=== PATIENT | female | born 1975 | race Caucasian/White ===

== ENCOUNTER 2017-11-20 15:35 | Emergency (ER) | payer OTHER ==
[~2017-11-20] VITALS: Ht 170.2 cm; Wt 79.4 kg
[~2017-11-20 15:35] MED LIST: DIAZ5TAB PO; HYDR-971 PO; ONDA4TAB10 PO; ONDA4TAB7 PO
[2017-11-20 15:55] VITALS: BP 105/77
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
[2017-11-20] MEDS ORDERED: IBUP800T19 PO (17:37)
[2017-11-20] MEDS ORDERED: ONDA4TAB10 PO (17:43)
[2017-11-20] MEDS ORDERED: IBUPROFEN 600 MG TABLET. PO ONE (18:00)
== END 2017-11-20 17:59 | disposition home or self-care (01) ==
LOC: ER 15:35
DX: S09.90XA Unspecified injury of head, initial encounter (principal); S16.1XXA Strain of muscle, fascia and tendon at neck level, initial encounter; S00.11XA Contusion of right eyelid and periocular area, initial encounter; Z88.6 Allergy status to analgesic agent; Z88.5 Allergy status to narcotic agent; Z88.8 Allergy status to other drugs, medicaments and biological substances; V89.2XXA Person injured in unspecified motor-vehicle accident, traffic, initial encounter; Y93.89 Activity, other specified; Y99.8 Other external cause status; Y92.488 Other paved roadways as the place of occurrence of the external cause
CPT/HCPCS: 70450; 72125; 99284-25

== ENCOUNTER 2018-01-02 15:18 | Emergency (ER) | payer OTHER ==
[~2018-01-02 15:18] MED LIST changes: +IBUP800T19 PO
[2018-01-02] MEDS ORDERED: methylPREDNISolone SOD SUCC PF 40 MG/ML VIAL. IM ONE (16:30)
[2018-01-02] MEDS ORDERED: ONDANSETRON ODT 4 MG TAB.RAPDIS PO ONE (16:30)
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
[2018-01-02] MEDS ORDERED: diazePAM 5 MG TABLET ONE (16:43)
[2018-01-02] MEDS ORDERED: diazePAM 5 MG TABLET PO ONE (16:45)
[2018-01-02 17:00] VITALS: BP 126/70
== END 2018-01-02 17:18 | disposition home or self-care (01) ==
LOC: ER 15:18
DX: M79.604 Pain in right leg (principal); M79.605 Pain in left leg; M54.5 Low back pain; Z90.49 Acquired absence of other specified parts of digestive tract; Z88.5 Allergy status to narcotic agent; Z88.8 Allergy status to other drugs, medicaments and biological substances; Z88.6 Allergy status to analgesic agent
CPT/HCPCS: 96372; 99283; J2920; Q0162

== ENCOUNTER 2018-03-17 22:10 | Inpatient (IN) | payer OTHER ==
[~2018-03-17] VITALS: Ht 170.2 cm; Wt 86.8 kg
--- NOTE | 2018-03-17 22:46 | ED.ADGEN ---
Past History Past Medical History: Diverticulitis, Ovarian Cyst, Other Past Surgical History: Cholecystectomy Alcohol Use: Occasionally Drug Use: None Adult General Chief Complaint Chief Complaint " .. I just having terrible pain.. it started about 11:30.. and more severe all day.. I did eat at 4:30 pm.. but that did not help... I ve had ovarian cysts before ... but nothing like this.. " HPI HPI Patient is a 42 year old female who presents with above hx and complaints nausea vomiting and abdomen pain. No history of intake of bad food. No history of travel or specific ill contacts. No history of trauma. Patient denies any history of immunosuppression. Patient has had previous cholecystectomy. Patient reports a normal colonoscopy in the past. Patient does have a history of prior ovarian cyst. Review of Systems Review of Systems Constitutional: Denies fever or chills [] Eyes: Denies change in visual acuity, redness, or eye pain [] HENT: Denies nasal congestion or sore throat [] Respiratory: Denies cough or shortness of breath [] Cardiovascular: No additional information not addressed in HPI [] GI: Complaints of abdominal pain, nausea, vomiting,. Denies bloody stools or diarrhea [] : Denies dysuria or hematuria [] Musculoskeletal: Denies back pain or joint pain [] Integument: Denies rash or skin lesions [] Neurologic: Denies headache, focal weakness or sensory changes [] Endocrine: Denies polyuria or polydipsia [] All other systems were reviewed and found to be within normal limits, except as documented in this note. Family History Family History Noncontributory Current Medications Current Medications Current Medications Medications (Trade) Dose Ordered Sig/Yanique Start Time Stop Time Status Last Admin Dose Admin Ceftriaxone Sodium 1 gm/ Sodium Chloride 50 ml @ 100 mls/hr 1X ONCE 03/18/18 02:15 03/18/18 02:44 UNV Ceftriaxone Sodium (Rocephin) 1 gm 1X ONCE 03/18/18 02:30 03/18/18 02:31 DC 03/18/18 02:30 1 GM Diphenhydramine HCl (Benadryl) 50 mg STK-MED ONCE 03/18/18 03:31 03/18/18 03:33 DC Famotidine (Pepcid Vial) 20 mg 1X ONCE 03/17/18 23:15 03/17/18 23:16 DC 03/17/18 23:22 20 MG Fentanyl Citrate (Fentanyl 2ml Vial) 50 mcg 1X ONCE 03/18/18 02:00 03/18/18 02:01 DC 03/18/18 02:00 50 MCG Info (Do NOT chart on this entry -- for MONITORING) 1 each PRN DAILY PRN 03/18/18 00:30 03/20/18 00:29 Iohexol (Omnipaque 240 Mg/ml) 50 ml STK-MED ONCE 03/18/18 00:19 03/18/18 00:20 DC Iohexol (Omnipaque 300 Mg/ml) 75 ml 1X ONCE 03/18/18 00:30 03/18/18 00:31 DC 03/18/18 01:24 75 ML Lactated Ringer's 1,000 ml @ 1,000 mls/hr Q1H 03/17/18 23:01 03/18/18 00:00 DC 03/17/18 23:01 1,000 MLS/HR Metronidazole 100 ml @ 100 mls/hr 1X ONCE 03/18/18 02:30 03/18/18 03:29 DC 03/18/18 02:30 100 MLS/HR Morphine Sulfate (Morphine 10mg Syringe) 10 mg 1X ONCE 03/18/18 03:30 03/18/18 03:31 DC 03/18/18 03:08 10 MG Ondansetron HCl (Zofran) 8 mg 1X ONCE 03/18/18 02:00 03/18/18 02:01 DC 03/18/18 02:00 8 MG Promethazine HCl (Phenergan) 25 mg STK-MED ONCE 03/18/18 03:31 03/18/18 03:33 DC Allergies Allergies Allergies Coded Allergies Type Severity Reaction Last Updated Verified acetaminophen Allergy Intermediate itch 06/01/16 Yes meperidine Allergy Intermediate short of air 06/01/16 Yes oxycodone Allergy Intermediate itch 06/01/16 Yes Physical Exam Physical Exam Constitutional: in acute distress, non-toxic appearance. [] HENT: Normocephalic, atraumatic, bilateral external ears normal, oropharynx moist, no oral exudates, nose normal. [] Eyes: PERRLA, EOMI, conjunctiva normal, no discharge. [] Neck: Normal range of motion, no tenderness, supple, no stridor. [] Cardiovascular:Heart rate regular rhythm, no murmur [] Lungs & Thorax: Bilateral breath sounds clear to auscultation [] Abdomen: Bowel sounds decreased, right upper quadrant tenderness, some Rt. flank tenderness, no masses, no pulsatile masses. Mild distention. Old surgical scars. Declines rectal / vaginal exam at this time. Skin: Warm, dry, no erythema, no rash. [] Back: No tenderness, no CVA tenderness. [] Extremities: No tenderness, no cyanosis, no clubbing, ROM intact, no edema. [] Very mild psoas on right Neurologic: Alert and oriented X 3, normal motor function, normal sensory function, no focal deficits noted. [] Psychologic: Affect anxious, judgement normal, mood normal. [] Current Patient Data Vital Signs Vital Signs Date Time Temp Pulse Resp B/P (MAP) Pulse Ox O2 Delivery O2 Flow Rate FiO2 03/18/18 03:40 16 100 Room Air 03/18/18 02:16 60 101/70 (80) 03/17/18 22:10 98.3 Lab Results Laboratory Tests Test 03/17/18 21:53 03/17/18 22:40 03/17/18 23:40 POC Urine HCG, Qualitative hcg negative (Negative) Urine Collection Type Unknown Urine Color Yellow Urine Clarity Clear Urine pH 6.5 Urine Specific [place] 1.020 Urine Protein Neg (NEG-TRACE) Urine Glucose (UA) Neg mg/dL (NEG) Urine Ketones (Stick) Neg mg/dL (NEG) Urine Blood Neg (NEG) Urine Nitrite Neg (NEG) Urine Bilirubin Neg (NEG) Urine Urobilinogen Dipstick 0.2 mg/dL (0.2 mg/dL) Urine Leukocyte Esterase Neg (NEG) Urine RBC 0 /HPF (0-2) Urine WBC Rare /HPF (0-4) Urine Squamous Epithelial Cells Mod /LPF Urine Bacteria 0 /HPF (0-FEW) Urine Opiates Screen Neg (NEG) Urine Methadone Screen Neg (NEG) Urine Barbiturates Neg (NEG) Urine Phencyclidine Screen Neg (NEG) Urine Amphetamine/Methamphetamine Neg (NEG) Urine Benzodiazepines Screen Neg (NEG) Urine Cocaine Screen Neg (NEG) Urine Cannabinoids Screen Neg (NEG) Urine Ethyl Alcohol Neg (NEG) White Blood Count 9.6 x10^3/uL (4.0-11.0) Red Blood Count 3.81 x10^6/uL (3.50-5.40) Hemoglobin 12.7 g/dL (12.0-15.5) Hematocrit 37.4 % (36.0-47.0) Mean Corpuscular Volume 98 fL (79-100) Mean Corpuscular Hemoglobin 33 pg (25-35) Mean Corpuscular Hemoglobin Concent 34 g/dL (31-37) Red Cell Distribution Width 12.7 % (11.5-14.5) Platelet Count 206 x10^3/uL (140-400) Neutrophils (%) (Auto) 67 % (31-73) Lymphocytes (%) (Auto) 21 % (24-48) L Monocytes (%) (Auto) 10 % (0-9) H Eosinophils (%) (Auto) 1 % (0-3) Basophils (%) (Auto) 1 % (0-3) Neutrophils # (Auto) 6.4 x10^3uL (1.8-7.7) Lymphocytes # (Auto) 2.0 x10^3/uL (1.0-4.8) Monocytes # (Auto) 1.0 x10^3/uL (0.0-1.1) Eosinophils # (Auto) 0.1 x10^3/uL (0.0-0.7) Basophils # (Auto) 0.1 x10^3/uL (0.0-0.2) Prothrombin Time 10.1 SEC (9.4-11.4) Prothrombin Time INR 1.0 (0.9-1.1) PTT 24 SEC (23-33) Maternal Serum HCG Beta Subunit < 1 mIU/mL (0-6) Sodium Level 141 mmol/L (136-145) Potassium Level 3.4 mmol/L (3.5-5.1) L Chloride Level 105 mmol/L (98-107) Carbon Dioxide Level 24 mmol/L (21-32) Anion Gap 12 (6-14) Blood Urea Nitrogen 14 mg/dL (7-20) Creatinine 0.8 mg/dL (0.6-1.0) Estimated GFR (Cockcroft-Gault) 79.0 Glucose Level 123 mg/dL (70-99) H Calcium Level 8.3 mg/dL (8.5-10.1) L Total Bilirubin 0.3 mg/dL (0.2-1.0) Direct Bilirubin 0.1 mg/dL (0.0-0.2) Aspartate Amino Transferase (AST) 12 U/L (15-37) L Alanine Aminotransferase (ALT) 15 U/L (14-59) Alkaline Phosphatase 59 U/L (46-116) Total Protein 6.4 g/dL (6.4-8.2) Albumin 3.4 g/dL (3.4-5.0) Lipase 148 U/L (73-393) EKG EKG [] Radiology/Procedures Radiology/Procedures My interpretation of Acute Abd. - no acute cardiopulmonary findings. No free air under diaphragm[]. Nonspecific bowel gas pattern. Some increase in stool. Old surgical clips. CT shows finding of Rt. colon diverticulitis at hepatic flexure. Course & Med Decision Making Course & Med Decision Making Pertinent Labs and Imaging studies reviewed. (See chart for details). Stay on clear fluid diet only for 48 hrs. . No solids or milk products. Clear fluids only. Take Levaquin 500 daily, and Flagyl 500 three times a day. Ibuprofen for pain. Vicoprofen up to 4 x day for marked pain. Zofran for N/V up to 4 x day. Follow up with primary. Consider GI follow up and repeat colon scopic exam after over this acute episode. Return if any concerns. Pt requesting discharge. Pt. just before leaving room, developed more pain and nausea. Pt request admission. Discussed presentation, testing and tx. plan with Dr. Best. Will admit for further eval and tx. [] Final Impression Final Impression 1. Abdomen Pain 2. []Nausea and Vomiting 3. Diverticulitis 4. Hypokalemia Problems: Dragon Disclaimer Dragon Disclaimer This electronic medical record was generated, in whole or in part, using a voice recognition dictation system. FERMIN ROWLAND MD Mar 17, 2018 22:45
[2018-03-17] MEDS ORDERED: IV RINGERS SOLUTION,LACTATED 1,000 ML IV SCH (23:01)
[2018-03-17 23:06] LABS: BARBITURATES NEG (NEG); BENZODIAZEPINES NEG (NEG); CANNABINOIDS NEG (NEG); COCAINE NEG (NEG); METHADONE NEG (NEG); OPIATES NEG (NEG); PHENCYCLIDINE NEG (NEG)
[2018-03-17 23:07] LABS: AMPHETAMINE/METHAMPHETAMINE NEG (NEG)
[2018-03-17 23:12] LABS: BACTERIA,URINE 0 /HPF (0-FEW); BILIRUBIN,URINE NEG (NEG); CLARITY,URINE CLEAR; COLOR,URINE YELLOW; GLUCOSE,URINE NEG (NEG); NITRITE,URINE NEG (NEG); RBC,URINE 0 /HPF (0-2); SQUAMOUS EPITHELIAL CELL,UR MOD /LPF; UROBILINOGEN,URINE 0.2 mg/dL (0.2 mg/dL); WBC,URINE RARE /HPF (0-4)
[2018-03-17] MEDS ORDERED: FAMOTIDINE 20 MG/2 ML VIAL IVP ONE (23:15)
[2018-03-17] MEDS ORDERED: ONDANSETRON PF 4 MG/2 ML VIAL. IV ONE (23:15)
[2018-03-17 23:55] LABS: BASO # 0.1 x10^3/uL (0.0-0.2); BASO % 1 % (0-3); EOS # 0.1 x10^3/uL (0.0-0.7); EOS % 1 % (0-3); HEMATOCRIT 37.4 % (36.0-47.0); HEMOGLOBIN 12.7 g/dL (12.0-15.5); LYMPH % 21 % (24-48); MEAN CORPUSCULAR HEMOGLOBIN 33 pg (25-35); MEAN CORPUSCULAR HGB CONC 34 g/dL (31-37); MEAN CORPUSCULAR VOLUME 98 fL (79-100); MONO % 10 % (0-9); NEUT # 6.4 x10^3uL (1.8-7.7); NEUT % 67 % (31-73); PLATELET COUNT 206 x10^3/uL (140-400); RED BLOOD COUNT 3.81 x10^6/uL (3.50-5.40); RED CELL DISTRIBUTION WIDTH 12.7 % (11.5-14.5); WHITE BLOOD COUNT 9.6 x10^3/uL (4.0-11.0)
[2018-03-18 00:11] LABS: ALBUMIN 3.4 g/dL (3.4-5.0); CALCIUM 8.3 mg/dL (8.5-10.1); CREATININE 0.8 mg/dL (0.6-1.0); DIRECT BILIRUBIN 0.1 mg/dL (0.0-0.2); POTASSIUM 3.4 mmol/L (3.5-5.1); TOTAL BILIRUBIN 0.3 mg/dL (0.2-1.0); TOTAL PROTEIN 6.4 g/dL (6.4-8.2)
[2018-03-18] MEDS ORDERED: IOHEXOL 240 MG/ML 50ML VIAL. ONE (00:19)
[2018-03-18] MEDS ORDERED: IOHEXOL 300 MG/ML 75 ML VIAL. IV ONE (00:30)
[2018-03-18] MEDS ORDERED: CONTRAST GIVEN MC PRN (00:30)
[2018-03-18] MEDS ORDERED: ONDANSETRON PF 4 MG/2 ML VIAL. IV ONE (02:00)
--- NOTE | 2018-03-18 02:02 | RAD ---
CT SCAN OF THE ABDOMEN AND PELVIS WITH IV CONTRAST. History: Right-sided abdominal pain with nausea Comparison:None. Procedure: Contiguous axial images of the abdomen and pelvis were performed after the administration of 75 cc of Omni 300 IV contrast and oral contrast. CT Abdomen with contrast: Findings: There is pericolonic inflammation seen anterior to the hepatic flexure of the colon. This appears to surround a single diverticulum. Liver: Unremarkable Spleen: Unremarkable Pancreas: Unremarkable Adrenal Glands: Unremarkable Kidneys: Unremarkable There is no mass or lymphadenopathy. There is no free air. There has been cholecystectomy. CT Pelvis with Contrast: Findings: The urinary bladder appears normal. There is mild free fluid on the left. There is no lymphadenopathy. The appendix is normal. Impression: 1. Inflammation anterior to the hepatic flexure of the colon suggests right-sided diverticulitis. 2. Mild free fluid in the pelvis. PQRS Compliance Statement: One or more of the following individualized dose reduction techniques were utilized for this examination: 1. Automated exposure control 2. Adjustment of the mA and/or kV according to patient size 3. Use of iterative reconstruction technique Electronically signed by: Arnold Ham III, MD (03/18/2018 1:58 AM) [id number]
[2018-03-18] MEDS ORDERED: cefTRIAXone IV Push 1 GM VIAL. IVP ONE (02:30)
[2018-03-18] MEDS ORDERED: HYDR-79 PO (02:39)
[2018-03-18] MEDS ORDERED: ONDA8TAB12 PO (02:39)
[2018-03-18] MEDS ORDERED: LEVO500T59 PO (02:39)
[2018-03-18] MEDS ORDERED: METR500T PO (02:39)
[2018-03-18] MEDS ORDERED: MORPHINE SULFATE 10 MG/ML SYRINGE. ONE (02:56)
[2018-03-18] MEDS ORDERED: MORPHINE SULFATE 10 MG/ML SYRINGE. SQ ONE (03:30)
[2018-03-18] MEDS ORDERED: PROMETHAZINE 25 MG/ML VIAL IV ONE (03:31)
[2018-03-18] MEDS ORDERED: diphenhydrAMINE 50 MG/ML VIAL ONE (03:31)
[2018-03-18] MEDS ORDERED: diphenhydrAMINE 50 MG/ML VIAL IVP ONE (04:15)
[2018-03-18] MEDS ORDERED: PROMETHAZINE IM 25 MG/ML VIAL IM ONE (04:15)
[2018-03-18] MEDS: IV RINGERS SOLUTION,LACTATED 1,000 ML IV SCH ×2 (05:00→11:15)
[2018-03-18 06:23] VITALS: BP 96/64
[2018-03-18] MEDS ORDERED: TRAM50TA PO (06:37)
[2018-03-18] MEDS ORDERED: BACL20TA PO (06:37)
[2018-03-18] MEDS ORDERED: GABA100C6 PO (06:37)
[2018-03-18] MEDS ORDERED: POTASSIUM CHLORIDE 20 MEQ TABLET.ER. PO ONE (07:30)
--- NOTE | 2018-03-18 08:13 | RAD ---
Acute abdomen series with chest, 3 views, 03/17/2018: History: Severe right-sided abdominal pain Gas is present in large and small bowel in a nonspecific pattern. No free air is present in the abdomen. Surgical clips are present in the right upper quadrant. There is a small radiopacity compatible with a surgical clip projected over the left upper pelvis. There is no evidence of organomegaly. The heart size is normal. The lungs are clear. There is no evidence of pleural fluid. IMPRESSION: No acute abdominal abnormality is detected.
[2018-03-18] MEDS: ONDANSETRON PF 4 MG/2 ML VIAL. IV PRN ×2 (08:30→15:21)
[2018-03-18] MEDS: IV NORMAL SALINE 1,000ML 1,000 ML IV SCH ×2 (09:14→18:04)
[2018-03-18] MEDS: diphenhydrAMINE 50 MG/ML VIAL IVP PRN ×2 (10:21→18:03)
[2018-03-18] MEDS: HYDROcodone/APAP 5/325MG 1 TAB TABLET PO PRN ×3 (10:36→15:16)
[2018-03-18 11:20] VITALS: BP 113/74
--- NOTE | 2018-03-18 13:04 | HP ---
ADMIT DATE: 03/18/2018 HISTORY OF PRESENT ILLNESS: The patient is a 42-year-old female patient who came to the Emergency Room complaining of severe abdominal pain that started yesterday around 11:30 in the morning and continued to be progressively worse. She said she has had an ovarian cyst rupture before and seemed the pain was similar to that and decided to come to the Emergency Room for further evaluation. She was extensively investigated. Her lab work showed no evidence of leukocytosis; however, her CT scan of the abdomen and pelvis showed that there is pericolonic inflammation seen anterior to the hepatic flexure of the colon. There appears to be surrounding single diverticulum, with mild free fluid in the pelvis; however, the liver, spleen, pancreas, adrenal glands and kidneys are unremarkable. There is no mass or lymphadenopathy. There is no free air. She has had history of cholecystectomy. The appendix was normal. There is no lymphadenopathy and urinary bladder appears normal. The patient was admitted with acute diverticulitis, started on IV fluid, IV Flagyl and Rocephin as well as pain medication and antiemetics. PAST MEDICAL HISTORY: Significant for lumbar spine spondylosis with right-sided radiculopathy for which she has received a spinal epidural steroid injection recently. She underwent exploratory laparotomy for ovarian cyst rupture, cholecystectomy, wisdom tooth extraction, bunionectomy of the right foot. ALLERGIES: She is allergic to DEMEROL. She apparently is INTOLERANT OF NARCOTICS, especially, DEMEROL, OXYCODONE. MEDICATIONS: She is currently on ibuprofen 800 mg 3 times a day, gabapentin 200 mg 3 times a day, senna tab 1 tablet twice a day. She is on tramadol 50 mg every 6 hours as needed as well as Flexeril 10 mg 3 times a day. FAMILY HISTORY: She has a twin sister, half-sister and 2-step sisters. Her brother at age of 38 of myocardial infarction. He was a drug user. Her father is still alive at age of 72, who is known to have hypertension. Mother is alive at age of 70 and has hypertension and underwent hip replacement recently. SOCIAL HISTORY: She is . She has no children. She does not smoke. She drinks occasionally red wine. Does not use any drugs. 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 REVIEW OF SYSTEMS: She has bilateral cataracts that have not matured enough to be surgically treated. She has also hearing loss. She has had some nausea but no vomiting. He has also tendency for constipation. Denied any hematemesis, melena or hematochezia. Denied any dysuria, frequency or hematuria. Denied any chest pain, shortness of breath, orthopnea or paroxysmal nocturnal dyspnea. Denied any chills, rigors, or fever. Denied any dizziness, lightheadedness, or vertigo. PHYSICAL EXAMINATION: GENERAL: On arrival to the Emergency Room, the patient apparently was in severe pain, slightly pale, but no jaundice, cyanosis, lymphadenopathy or thyromegaly. No jugular venous distention. No limb edema. VITAL SIGNS: Her heart rate was 96, blood pressure was 123/73, temperature was 98.3, respiratory rate was 20, and oxygen saturation was 100% on room air. HEENT: Showed normocephalic, atraumatic. NECK: Supple. HEART: Showed normal first and second heart sounds with no gallop, rub or murmur. CHEST: Clear to auscultation. No crepitation or rhonchi. ABDOMEN: Distended with severe tenderness in the right upper quadrant, according to description of the ER physician and nursing staff, when I saw her, her pain has largely subsided. There is no guarding or rigidity. No organomegaly. Hernial orifice intact. Bowel sounds normal. NEUROLOGIC: She is awake, alert, responding appropriately. Cranial nerves intact. EXTREMITIES: She moves extremities without difficulty. She ambulates without assistance or assistive devices. LABORATORY DATA: On admission showed that her white cell count was 9600, hemoglobin 13, hematocrit 37, MCV 98 and platelet count 206,000. Her serum sodium was 141, potassium 3.4, chloride 105, bicarbonate 24, anion gap of 12, BUN 14, creatinine 0.8, estimated GFR was 79 mL per minute. Her glucose was 123, calcium was 8.3. Total bilirubin, AST, ALT, alkaline phosphatase were normal. Total protein 6.4, albumin 3.4. Her prothrombin time was 10.1, INR of 1, aPTT was 24. Urinalysis showed the urine was yellow, clear with a pH of 6.5, specific gravity of 1.020. The urine was negative for protein, glucose, ketones, blood, nitrite and leukocyte esterase. There are no rbc's, very few wbc's and no bacteria. Her urine test was negative. Urine toxicology screen was negative. RADIOLOGICAL DATA: CT scan of the abdomen and pelvis showed that there is a pericolonic inflammation seen at the root of the hepatic flexure of the colon. There appears to be surrounding a single diverticulum. The liver, spleen, pancreas, adrenal glands and kidneys were unremarkable. There is no mass or lymphadenopathy. There is no free air, there has been a cholecystectomy. CT scan of the pelvis with contrast showed that the urinary bladder appears normal. There is mild free fluid on the left side. There is no lymphadenopathy. The appendix is normal. IMPRESSION: The patient has inflammation anterior to the hepatic flexure of the colon suggesting right-sided diverticulitis with mild free fluid in the pelvis. ASSESSMENT AND PLAN: The patient was admitted, started on IV antibiotic in the form of Flagyl and Rocephin, IV fluid and pain management as well as antiemetic. We will obviously continue with this and monitor her lab work. We will start her on a clear liquid diet and if tolerated and advance as tolerated. The patient was basically advised that she might require colonoscopy after she treated to look into it by the rental clerk. RACHANA WARE MD DR: MARTIN/radha JOB#: [id number] / [id number]
[2018-03-18 15:13] VITALS: BP 99/68
[2018-03-18 19:32] VITALS: BP 99/59
[2018-03-18] MEDS: LACTOBACILLUS RHAMNOSUS GG 1 CAPSULE. PO SCH (21:26)
[2018-03-18] MEDS: cefTRIAXone IV Push 1 GM VIAL. IVP SCH (21:26)
[2018-03-18 22:48] VITALS: BP 113/70
[2018-03-19] MEDS: ONDANSETRON PF 4 MG/2 ML VIAL. IV PRN ×4 (02:30→21:11)
[2018-03-19 05:41] VITALS: BP 111/73
[2018-03-19 06:53] LABS: BASO % 0 % (0-3); EOS # 0.3 x10^3/uL (0.0-0.7); EOS % 6 % (0-3); HEMATOCRIT 33.2 % (36.0-47.0); HEMOGLOBIN 11.6 g/dL (12.0-15.5); LYMPH # 1.1 x10^3/uL (1.0-4.8); LYMPH % 23 % (24-48); MEAN CORPUSCULAR HEMOGLOBIN 34 pg (25-35); MEAN CORPUSCULAR HGB CONC 35 g/dL (31-37); MEAN CORPUSCULAR VOLUME 98 fL (79-100); MONO # 0.5 x10^3/uL (0.0-1.1); MONO % 10 % (0-9); NEUT % 61 % (31-73); PLATELET COUNT 170 x10^3/uL (140-400); RED BLOOD COUNT 3.39 x10^6/uL (3.50-5.40); RED CELL DISTRIBUTION WIDTH 12.6 % (11.5-14.5)
[2018-03-19 06:55] LABS: ALBUMIN 2.8 g/dL (3.4-5.0); ALBUMIN/GLOBULIN RATIO 0.9 (1.0-1.7); CALCIUM 8.1 mg/dL (8.5-10.1); CREATININE 0.6 mg/dL (0.6-1.0); GFR 110.2; POTASSIUM 3.8 mmol/L (3.5-5.1); TOTAL BILIRUBIN 0.3 mg/dL (0.2-1.0); TOTAL PROTEIN 5.9 g/dL (6.4-8.2)
[2018-03-19] MEDS: LACTOBACILLUS RHAMNOSUS GG 1 CAPSULE. PO SCH ×2 (09:19→21:12)
[2018-03-19] MEDS: HYDROcodone/APAP 5/325MG 1 TAB TABLET PO PRN ×4 (09:19→21:12)
[2018-03-19] MEDS: IV NORMAL SALINE 1,000ML 1,000 ML IV SCH ×2 (11:55→22:07)
[2018-03-19] MEDS: diphenhydrAMINE 50 MG/ML VIAL IVP PRN ×2 (13:29→22:06)
[2018-03-19] MEDS ORDERED: SENNOSIDES 8.6 MG TABLET PO PRN (13:45)
[2018-03-19 14:54] VITALS: BP 104/72
[2018-03-19 18:59] VITALS: BP 113/76
[2018-03-19] MEDS: cefTRIAXone IV Push 1 GM VIAL. IVP SCH (21:12)
--- NOTE | 2018-03-20 00:03 | PN ---
DATE: 03/19/2018 SUBJECTIVE: The patient is resting slightly propped up in bed, in no apparent distress. She continued to complain of some pain in her right upper quadrant, also some nausea, but no vomiting. She has so far tolerated her liquid diet, has been up and have the shower, although she has not walked yet. The nursing staff did not voice any concern and stated that generally has an uneventful night. PHYSICAL EXAMINATION: GENERAL: When I examined her, she looked well and was clearly in no apparent respiratory distress. No pallor, jaundice, cyanosis, or thyromegaly. No jugular venous distension. No lower limb edema. VITAL SIGNS: Her heart rate was 80, blood pressure was 104/72, temperature was 97.9, respiratory rate was 18 and oxygen saturation was 95%. HEAD, EYES, EARS, NOSE AND THROAT: Showed normocephalic, atraumatic. NECK: Supple. HEART: Showed normal first and second heart sounds. No gallop, rub or murmur. CHEST: Clear to auscultation. No crepitation or rhonchi. ABDOMEN: Distended, soft, nontender. No guarding or rigidity. No organomegaly. Hernial orifice intact. Bowel sounds normal. She has some mild tenderness in the right upper quadrant. NEUROLOGIC: She is awake, alert, responding appropriately. Her cranial nerves are intact. She moves extremities without difficulty. She ambulates without assistance or assistive devices. Her intake over the last 24 hours was 1100, no output was recorded. LABORATORY DATA: Her lab work this morning showed a white cell count to be 5000, hemoglobin 11.6, hematocrit 33, MCV 99 and platelet count of 170,000. Her chemistry showed a serum sodium 141, potassium 3.8, chloride 106, bicarbonate 30, anion gap of 5, BUN 4, creatinine 0.6. Estimated GFR was 110 mL per minute. Her glucose was 101. Calcium was 8.1. Total bilirubin and alkaline phosphatase are normal. AST, ALT slightly elevated. Total protein was 5.9. Albumin 2.8. Urinalysis was unremarkable. Toxicology screen was negative. ASSESSMENT: Right-sided diverticulitis with mild free fluid in the pelvis. PLAN: Continue the IV fluid, continue IV antibiotic in the form of Flagyl and Rocephin. Continue with pain management and antiemetic. We will repeat her labs again tomorrow, and if she remains stable, she can be discharged on oral antibiotic. We will advance her diet today to soft diet and hopefully tomorrow to a regular diet and if she has no complication and tolerate her food, she can be discharged to continue with oral antibiotic to see a health equipment servicer as an outpatient for colonoscopy. RACHANA WARE MD DR: MARTIN/radha JOB#: [id number] / [id number]
[2018-03-20] MEDS: ONDANSETRON PF 4 MG/2 ML VIAL. IV PRN ×4 (02:11→22:29)
[2018-03-20] MEDS: HYDROcodone/APAP 5/325MG 1 TAB TABLET PO PRN ×4 (02:12→22:30)
[2018-03-20] MEDS: diphenhydrAMINE 50 MG/ML VIAL IVP PRN ×3 (06:23→20:20)
[2018-03-20 06:28] LABS: BASO % 0 % (0-3); EOS # 0.4 x10^3/uL (0.0-0.7); EOS % 8 % (0-3); HEMATOCRIT 34.2 % (36.0-47.0); LYMPH # 0.6 x10^3/uL (1.0-4.8); LYMPH % 11 % (24-48); MEAN CORPUSCULAR HEMOGLOBIN 34 pg (25-35); MEAN CORPUSCULAR HGB CONC 35 g/dL (31-37); MEAN CORPUSCULAR VOLUME 98 fL (79-100); MONO # 0.6 x10^3/uL (0.0-1.1); MONO % 11 % (0-9); NEUT # 3.7 x10^3uL (1.8-7.7); NEUT % 70 % (31-73); PLATELET COUNT 174 x10^3/uL (140-400); RED BLOOD COUNT 3.49 x10^6/uL (3.50-5.40); RED CELL DISTRIBUTION WIDTH 12.8 % (11.5-14.5); WHITE BLOOD COUNT 5.3 x10^3/uL (4.0-11.0)
[2018-03-20 06:31] VITALS: BP 94/61
[2018-03-20 06:37] LABS: ALBUMIN 2.9 g/dL (3.4-5.0); ALBUMIN/GLOBULIN RATIO 0.9 (1.0-1.7); CALCIUM 8.5 mg/dL (8.5-10.1); CREATININE 0.8 mg/dL (0.6-1.0); POTASSIUM 3.7 mmol/L (3.5-5.1); TOTAL BILIRUBIN 0.3 mg/dL (0.2-1.0); TOTAL PROTEIN 6.1 g/dL (6.4-8.2)
[2018-03-20] MEDS: LACTOBACILLUS RHAMNOSUS GG 1 CAPSULE. PO SCH ×2 (08:37→20:18)
[2018-03-20 11:06] VITALS: BP 113/76
[2018-03-20] MEDS ORDERED: IOHEXOL 240 MG/ML 50ML VIAL. ONE (13:56)
[2018-03-20] MEDS ORDERED: IOHEXOL 300 MG/ML 75 ML VIAL. IV ONE (14:15)
[2018-03-20] MEDS ORDERED: CONTRAST GIVEN MC PRN (14:15)
[2018-03-20 15:00] VITALS: BP 126/81
[2018-03-20] MEDS ORDERED: HYDROmorphone PF 2 MG/ML VIAL IV ONE (15:15)
--- NOTE | 2018-03-20 16:33 | RAD ---
CT Abdomen and Pelvis With Intravenous Contrast: History: Worsening right-sided pain, diverticulitis. Comparison: CT abdomen pelvis March 18, 2018. Technique: After administration of oral and intravenous contrast, 75 mL Omnipaque-300, CT of the abdomen and pelvis was performed. Exposure: One or more of the following individualized dose reduction techniques were utilized for this examination: 1. Automated exposure control 2. Adjustment of the mA and/or kV according to patient size 3. Use of iterative reconstruction technique Findings: Images lower chest demonstrates small bilateral pleural effusions. Bibasilar atelectasis is present. Liver, spleen, pancreas, and bilateral adrenal glands unremarkable. Gallbladder is absent. Intrahepatic and extrahepatic biliary dilatation is favored to be reservoir effect from patient's cholecystectomy. Bilateral kidneys enhance symmetrically. No bowel obstruction is identified. Appendix is without inflammation. Urinary bladder is unremarkable. Uterus and adnexa have unremarkable CT appearance for age. There is a small amount of free fluid present in the pelvis, which could be within physiologic/gynecologic limits, although mild amount of sympathetic inflammatory fluid is also possible. No free air is identified. No focal peripherally enhancing fluid collection to suggest abscess is seen. Colonic diverticulosis is noted, including the right colon. Inflammation involving the proximal transverse colon is probably without significant change, compatible with mild ongoing diverticulitis. L4 vertebral body demonstrates limbus vertebra. Impression: 1. Mild ongoing diverticulitis of proximal transverse colon. No perforation or abscess is seen. Electronically signed by: Peter Pastor MD (03/20/2018 4:29 PM) [id number]
[2018-03-20] MEDS: IV NORMAL SALINE 1,000ML 1,000 ML IV SCH (16:46)
[2018-03-20] MEDS ORDERED: PROMETHAZINE 12.5 MG in IV NORMAL SALINE 50ML 50 ML IV PRN (17:45)
[2018-03-20] MEDS ORDERED: HYDROmorphone PF 2 MG/ML VIAL IV PRN (17:45)
[2018-03-20 19:53] VITALS: BP 134/86
[2018-03-20] MEDS: cefTRIAXone IV Push 1 GM VIAL. IVP SCH (20:18)
[2018-03-20 23:10] VITALS: BP 94/63
--- NOTE | 2018-03-21 01:16 | PN ---
DATE: 03/20/2018 SUBJECTIVE: The patient has been complaining of severe abdominal pain, has attempted to advance her diet and has vomited; however, her vital signs remained stable and her lab work also remained within acceptable range. We did repeat her CT scan of the abdomen and pelvis, which basically showed that the impression is mildly ongoing diverticulitis of the proximal transverse colon. No perforation or abscess is seen. PHYSICAL EXAMINATION: GENERAL: When I saw her this afternoon, she looked well and was clearly in no apparent respiratory distress, pale, but no jaundice, cyanosis, or thyromegaly. No jugular venous distension, no lower limb edema. VITAL SIGNS: Her heart rate was 85, blood pressure was 113/76, temperature was 98.1, respiratory rate was 18 and oxygen saturation was 96%. HEAD, EYES, EARS, NOSE AND THROAT: Normocephalic, atraumatic. NECK: Supple. HEART: Showed normal first and second heart sounds with no gallop, rub or murmur. CHEST: Clear to auscultation. No crepitation or rhonchi. ABDOMEN: Distended with tenderness mostly in the right upper quadrant and also along the right flank area and right lower quadrant. There is no guarding or rigidity. No organomegaly. All hernial orifices intact. Bowel sounds normal. NEUROLOGIC: She is awake, alert, responding appropriately. Cranial nerves intact. She moves extremities without difficulty. She ambulates without assistance or assistive devices. Her intake over the last 24 hours was 2775, no output was recorded. LABORATORY DATA: Her lab work this morning showed a white cell count of 5300, hemoglobin 12, hematocrit 34, MCV 98 and platelet count of 174,000. Her chemistry showed a serum sodium 139, potassium 3.7, chloride 104, bicarbonate 30, anion gap of 5, BUN 4, creatinine 0.8. Estimated GFR was 79 mL per minute. Her glucose was 108. Calcium was 8.5. Total bilirubin and alkaline phosphatase normal. AST, ALT slightly elevated. Total protein was 6.1. Albumin was 2.9. Her prothrombin time was 10.1, INR of 1, aPTT was 24. Urinalysis showed the urine was yellow, clear with a pH of 6.5, otherwise, was unremarkable. ASSESSMENT: The patient has mild ongoing diverticulitis of the proximal transverse colon. No evidence of perforation or abscess is seen. PLAN: To continue with IV antibiotics. Continue with IV fluid and pain management. We will consult the surgical team and decide the further management accordingly. RACHANA WARE MD DR: MARTIN/radha JOB#: [id number] / [id number]
[2018-03-21] MEDS: IV NORMAL SALINE 1,000ML 1,000 ML IV SCH (05:11)
[2018-03-21] MEDS: ONDANSETRON PF 4 MG/2 ML VIAL. IV PRN (05:11)
[2018-03-21] MEDS: HYDROcodone/APAP 5/325MG 1 TAB TABLET PO PRN (05:12)
[2018-03-21 05:52] VITALS: BP 104/70
[2018-03-21] MEDS: diphenhydrAMINE 50 MG/ML VIAL IVP PRN (05:56)
[2018-03-21 06:44] LABS: HEMOGLOBIN 12.2 g/dL (12.0-15.5); RED BLOOD COUNT 3.56 x10^6/uL (3.50-5.40); RED CELL DISTRIBUTION WIDTH 12.7 % (11.5-14.5); WHITE BLOOD COUNT 3.9 x10^3/uL (4.0-11.0)
[2018-03-21 06:56] LABS: ALBUMIN 2.8 g/dL (3.4-5.0); ALBUMIN/GLOBULIN RATIO 0.8 (1.0-1.7); CALCIUM 7.8 mg/dL (8.5-10.1); CREATININE 0.8 mg/dL (0.6-1.0); POTASSIUM 3.5 mmol/L (3.5-5.1); TOTAL BILIRUBIN 0.3 mg/dL (0.2-1.0); TOTAL PROTEIN 6.1 g/dL (6.4-8.2)
[2018-03-21] MEDS: LACTOBACILLUS RHAMNOSUS GG 1 CAPSULE. PO SCH (07:47)
[2018-03-21 08:56] VITALS: BP 124/86
--- NOTE | 2018-03-27 18:03 | DS ---
DATE OF DISCHARGE: 03/21/2018 HOSPITAL COURSE: The patient is a 42-year-old female patient, who was admitted on 03/18/2018 with severe abdominal pain that has been progressive. She stated that she has before an ovarian cyst rupture and has been seemed to be very similar to that, she was extensively investigated and her lab work showed no evidence of leukocytosis; however, her CT scan of the abdomen and pelvis showed that she has pericolonic inflammation seen anterior to the hepatic flexure of the colon and there appears to be surrounding single diverticulum with mild free fluid in the pelvis; however, the liver, spleen, pancreas, adrenal glands and kidneys are unremarkable. There are no masses or lymphadenopathy. There is no free air. Her appendix was normal. Her gallbladder was removed surgically. No lymphadenopathy or urinary bladder. The urinary bladder appears normal. She was started on IV Rocephin and Flagyl and IV fluid, pain medication and antiemetic and although her lab works are showed no evidence of any worsening. Repeat CT scan of the abdomen on 03/20/2018 showed no evidence of a change. She continued to complain of severe pain, nausea, vomiting and her liver enzymes are started rising, so a decision was made to transfer her to [facility] with the plan to consult the surgical team as well as library media assistant. PHYSICAL EXAMINATION: GENERAL: On the day of discharge, she looked well and was clearly in no apparent respiratory distress, pale, but no jaundice, cyanosis, thyromegaly. No jugular venous distention. No lower limb edema. VITAL SIGNS: Her heart rate was 74, blood pressure was 124/86, temperature was 98.5, respiratory rate was 18, and oxygen saturation was 97% on room air. HEAD, EYES, EARS, NOSE AND THROAT: Showed normocephalic, atraumatic. NECK: Supple. HEART: Showed normal first and second sounds. No gallop, rub or murmur. CHEST: Clear to auscultation. No crepitation or rhonchi. ABDOMEN: Distended, soft, nontender. No guarding or rigidity. No organomegaly. Hernial orifice was intact. The bowel sounds normal. NEUROLOGIC: She was awake, alert, responding appropriately. LABORATORY DATA: Her lab work on the day of discharge showed a white cell count of 3900, hemoglobin 12, hematocrit 35, MCV 98, and platelet count of 172,000. Her chemistry showed a serum sodium 139, potassium 3.5, chloride 104, bicarbonate 30, anion gap of 5, BUN 3, creatinine 0.8, estimated GFR was 79 mL per minute. Her glucose 104, calcium was 7.8, total bilirubin 0.3; however, AST, ALT, alkaline phosphatase all have risen dramatically. Her total protein was 6.1, albumin was 2.8. Her prothrombin time and INR and aPTT were normal. DISCHARGE MEDICATIONS: The patient was discharged and was transferred to [facility] to continue with IV Rocephin, IV Flagyl, and pain medication, and IV fluid. FINAL DISCHARGE DIAGNOSIS: Acute diverticulitis with no evidence of perforation or abscess seen. DISPOSITION: The patient was transferred to [facility] to consult the surgical team as well as the library media assistant to assist with her management. RACHANA WARE MD DR: MARTIN/radha JOB#: [id number] / [id number]
== END 2018-03-21 09:21 | disposition short-term general hospital (02) | DRG 392 ==
LOC: ER 22:10 → 1 SOUTH 03-18 04:00
PROVIDERS: ADMIT Internal Medicine; ATTEND Internal Medicine
DX: K57.32 Diverticulitis of large intestine without perforation or abscess without bleeding (principal); E87.6 Hypokalemia; M47.26 Other spondylosis with radiculopathy, lumbar region; Z88.5 Allergy status to narcotic agent; Z88.8 Allergy status to other drugs, medicaments and biological substances; Z90.49 Acquired absence of other specified parts of digestive tract; Z79.899 Other long term (current) drug therapy; Z82.49 Family history of ischemic heart disease and other diseases of the circulatory system
CPT/HCPCS: 36415; 74022; 74177; 80048; 80053; 80076; 80307; 81001; 81025; 83690; 84702; 85025; 85027; 85610; 85730; 96361; 96365; 96372; 96375; 96376; J0696; J1170; J1200; J2270; J2405; J2550; J3010; J3490; J7120; Q9967; S0028; 99285-25; G0479; J7030

== ENCOUNTER 2021-02-22 10:46 | Emergency (ER) | payer OTHER ==
[~2021-02-22] VITALS: Ht 170.2 cm; Wt 81.0 kg
[~2021-02-22 10:46] MED LIST changes: +BACL20TA PO; +GABA100C6 PO; +HYDR-1179 PO; +HYDR-3165 PO; -HYDR-971 PO; +LEVO500T59 PO; +METR500T PO; +ONDA8TAB12 PO; +TRAM50TA PO
[2021-02-22] MEDS ORDERED: FAMOTIDINE 20 MG TABLET PO ONE (11:00)
[2021-02-22] MEDS ORDERED: DEXAMETHASONE 4 MG TABLET PO ONE (11:00)
[2021-02-22] MEDS ORDERED: METOCLOPRAMIDE HCL 10 MG/2 ML VIAL. IVP ONE (11:15)
[2021-02-22] MEDS ORDERED: FAMOTIDINE 20 MG/2 ML VIAL IVP ONE (11:15)
[2021-02-22] MEDS ORDERED: IV NORMAL SALINE 1,000ML 1,000 ML IV ONE (11:15)
--- NOTE | 2021-02-22 11:48 | PHYS DOC ---
Past History Past Medical History: Diverticulitis, Fibromyalgia, Ovarian Cyst, Other Additional Past Medical Histor: Eloy's thyroiditis, lower back pain, vertigo Past Surgical History: Cholecystectomy, Colectomy, Other Past Surgical History Right foot surgery, ovarian cyst removal, left rotator cuff surgery Smoking: Non-smoker Alcohol Use: None Drug Use: None Social History Former [employer]. lives with . General Adult EDM: Chief Complaint: ALLERGIC REACTION HPI: HPI: 45-year-old female presents to emergency department by EMS. She called ambulance after having what she believes is an allergic reaction to an increased dose of the drug Marinol. She takes Marinol for her vertigo. Patient this morning took her first dose of this increased dosage of Marinol and experienced shortness of breath, tremors, and muscle rigidity in her extremities. The symptoms occurred 5 minutes after taking the medication. She has never experienced this before with Marinol at a lower dose. Patient took Benadryl sh ortly after which alleviated the symptoms somewhat, but patient still complains about shortness of breath. Patient denies any fever, chills, nausea, vomiting. Patient also has allergies to Demerol and Keflex. Review of Systems: Review of Systems: Constitutional: Denies fever or chills Eyes: Denies redness or eye pain HENT: Denies nasal congestion or sore throat Respiratory: Shortness of breath, no coughing Cardiovascular: Denies chest pain or palpitations GI: Denies abdominal pain, nausea, or vomiting : Denies dysuria or hematuria Musculoskeletal: Denies back pain or joint pain Integument: Denies rash or skin lesions Neurologic: Denies headache, focal weakness or sensory changes Complete systems were reviewed and found to be within normal limits, except as documented in this note. Family History: Family History: No relevant family history Current Medications: Current Meds: Current Medications Medications (Trade) Dose Ordered Sig/Yanique Start Time Stop Time Status Last Admin Dose Admin Dexamethasone (Decadron) 10 mg 1X ONCE 02/22/21 11:00 02/22/21 11:14 DC Famotidine (Pepcid Vial) 20 mg 1X ONCE 02/22/21 11:15 02/22/21 11:16 DC Famotidine (Pepcid) 20 mg 1X ONCE 02/22/21 11:00 02/22/21 11:06 DC Lorazepam (Ativan Inj) 1 mg 1X ONCE 02/22/21 11:15 02/22/21 11:16 DC Metoclopramide HCl (Reglan Vial) 10 mg 1X ONCE 02/22/21 11:15 02/22/21 11:16 DC Sodium Chloride 1,000 ml @ 1,000 mls/hr 1X ONCE 02/22/21 11:15 02/22/21 12:14 Allergies: Allergies: Allergies Coded Allergies Type Severity Reaction Last Updated Verified acetaminophen Allergy Intermediate itch 06/01/16 Yes meperidine Allergy Intermediate short of air 06/01/16 Yes oxycodone Allergy Intermediate itch 06/01/16 Yes cephalexin Allergy Unknown 02/22/21 Yes Physical Exam: PE: Constitutional: Well developed, well nourished HENT: Normocephalic, atraumatic Eyes: conjunctiva normal, no discharge Neck: Normal range of motion, no tenderness, supple Lungs & Thorax: Shortness short of breath, equal chest rise and fall Abdomen: Soft, no tenderness Skin: Warm, dry, no erythema, no rash Back: No tenderness, no CVA tenderness Extremities: Slight rigidity in upper extremities bilaterally, no tenderness, ROM intact, no edema Neurologic: Alert and oriented X 3, normal motor function, normal sensory function, no focal deficits noted Psychologic: Patient is in distress, judgment normal EKG: EKG: [] Radiology/Procedures: Radiology/Procedures: [] Heart Score: C/O Chest Pain: N/A Course & Med Decision Making: Course & Med Decision Making 45-year-old female is brought to the emergency department by EMS after having allergic reaction versus dystonic reaction to an increased dose of Marinol that she takes for vertigo. Patient was given IV fluids medications to help with vertigo while in the emergency department. Patient was cleared for discharge and was told to follow-up with PCP for Marinol use and was cautioned about allergic or dystonic reactions to the medication. Patient was given meclizine to help with vertigo upon discharge. Yashira Disclaimer: Yashira Disclaimer: This electronic medical record was generated, in whole or in part, using a voice recognition dictation system. Departure Departure: Impression: Primary Impression: Allergic reaction caused by a drug Qualified Codes: T78.40XA - Allergy, unspecified, initial encounter Disposition: 01 DC HOME SELF CARE/HOMELESS Condition: STABLE Referrals: [facility] (PCP) Patient Instructions: Drug Allergy, [id number], Dystonic Reaction, Vertigo, [id number] Additional Instructions: Please contact your provider for further treatment with Marinol. May also take over the counter Benadryl as needed for swelling or allergic re action Scripts Famotidine (PEPCID) 20 Mg Tablet 1 TAB PO BID for drug allergy, #10 TAB Prov: RICH GOOD DO 02/22/21 Prednisone (PREDNISONE) 20 Mg Tablet 2 TAB PO DAILY for Drug allergy, #8 TAB Start this prescription tomorrow, 02/23/21 Prov: RICH GOOD DO 02/22/21 Meclizine Hcl (MECLIZINE HCL) 25 Mg Tablet 1 TAB PO PRN TID PRN for DIZZINESS, #20 TAB Prov: RICH GOOD DO 02/22/21 RICH GOOD DO Feb 22, 2021 11:48
[2021-02-22 12:47] VITALS: BP 145/88
[2021-02-22] MEDS ORDERED: FAMO-63 PO (13:02)
[2021-02-22] MEDS ORDERED: MECL-75 PO (13:02)
[2021-02-22] MEDS ORDERED: PRED20TA PO (13:02)
== END 2021-02-22 13:12 | disposition home or self-care (01) ==
LOC: ER 10:46
DX: R06.02 Shortness of breath (principal); T50.995A Adverse effect of other drugs, medicaments and biological substances, initial encounter; M79.7 Fibromyalgia; Z88.5 Allergy status to narcotic agent; Z88.1 Allergy status to other antibiotic agents; Z88.8 Allergy status to other drugs, medicaments and biological substances; Y92.89 Other specified places as the place of occurrence of the external cause
CPT/HCPCS: 96361; 96374; 96375; 99285; J2060; J2765; J3490; J7030; J8540